=== PATIENT | male | born 1980 | race Caucasian/White ===

== ENCOUNTER → 2023-11-23 08:59 | Outpatient (REF) | payer OTHER, SELFPAY | LOC: HWRAD 08:59 | PROVIDERS: ATTENDING PHYSICIAN Family Medicine | DX: M54.31 Sciatica, right side (principal) | CPT/HCPCS: 72110 ==

== ENCOUNTER → 2024-01-16 17:08 | Outpatient (REF) | payer OTHER, SELFPAY | LOC: MRI 17:08 | PROVIDERS: ATTENDING PHYSICIAN Physician Assistant; FAMILY PHYSICIAN Family Medicine | DX: M54.16 Radiculopathy, lumbar region (principal) | CPT/HCPCS: 72148 ==

== ENCOUNTER → 2024-02-07 07:24 | Outpatient (REF) | payer OTHER, SELFPAY | LOC: MRI 07:24 | PROVIDERS: ATTENDING PHYSICIAN Surgery; FAMILY PHYSICIAN Family Medicine | DX: N28.89 Other specified disorders of kidney and ureter (principal) | CPT/HCPCS: 74183; A9575 ==

== ENCOUNTER 2024-04-08 06:09 | Day surgery (SDC) | payer OTHER, SELFPAY ==
[2024-03-27 11:13] VITALS: BMI 52.6
[2024-03-27 11:43] LABS: Hematocrit 48.9 % (39.0-52.0); Hemoglobin 16.2 g/dL (13.0-18.0); Mean Corp Hgb Conc. 33.1 g/dL (33.0-37.0); Mean Corpuscular Hgb 30.9 pg (27.0-31.0); Mean Corpuscular Volume 93.1 fL (80.0-94.0); Mean Platelet Volume 9.6 fL (7.4-10.4); Platelet Count 251 10^3/uL (130-400); Red Blood Cell Count 5.25 10^6/uL (4.70-6.10); Red Cell Dist. Width 13.3 % (11.5-14.5)
[2024-03-27 15:23] LABS: Blood Urea Nitrogen 9 mg/dl (9-20); Calcium 8.8 mg/dl (8.4-10.2); Carbon Dioxide 30 mmol/L (22-30); Chloride 103 mmol/L (98-107); Estimated Creatinine Clearance > 125 ml/min; Glucose 131 mg/dl (70-99); Potassium 4.4 mmol/L (3.5-5.1); Sodium 145 mmol/L (135-145); eGFR > 60.00
[2024-04-08] VITALS (14 sets, daily range): BP systolic 98–168; BP diastolic 59–96; BMI 52.6
[2024-04-08 06:44] LABS: Glucose - Point of Care 143 mg/dl (70-99)
[2024-04-08 12:22] LABS: Glucose - Point of Care 195 mg/dl (70-99)
--- NOTE | 2024-04-08 12:27 | W.IMMPOSTOP ---
Surgical Immed Post Op Note
-
Primary Surgeon: Reidfer
Assisting Surgeon: none
Pre-op Diagnosis: R renal mass
Post-op Diagnosis: same
Procedure Performed: Robotic R partial nephrectomy
Anesthesia Type: general
Specimen / Cultures: R renal mass
Estimated Blood Loss: 250cc
Complications: none
Operative Findings: -
[2024-04-08] MEDS: DILAUDID 0.5 MG IV ×2 (12:33→13:04)
[2024-04-08] MEDS: TORADOL 15 MG IV ×2 (13:05→18:11)
[2024-04-08 13:12] LABS: Hematocrit 43.7 % (39.0-52.0); Hemoglobin 14.9 g/dL (13.0-18.0); Mean Corp Hgb Conc. 34.1 g/dL (33.0-37.0); Mean Corpuscular Hgb 30.7 pg (27.0-31.0); Mean Corpuscular Volume 89.9 fL (80.0-94.0); Mean Platelet Volume 9.6 fL (7.4-10.4); Platelet Count 266 10^3/uL (130-400); Red Blood Cell Count 4.86 10^6/uL (4.70-6.10); Red Cell Dist. Width 13.2 % (11.5-14.5); White Blood Cell Count 13.8 10^3/uL (4.8-10.8)
[2024-04-08] MEDS: NSS 1000 IV ×2 (13:20→20:59)
[2024-04-08 13:26] LABS: Blood Urea Nitrogen 9 mg/dl (9-20); Calcium 8.2 mg/dl (8.4-10.2); Carbon Dioxide 23 mmol/L (22-30); Chloride 101 mmol/L (98-107); Estimated Creatinine Clearance > 125 ml/min; Glucose 215 mg/dl (70-99); Sodium 137 mmol/L (135-145); eGFR > 60.00
--- NOTE | 2024-04-08 14:00 | PTCARENOTE ---
received pt from PACU in bed. he is AAOx3 and mentating well. c/o shoulder pain and secondarily, minor abdominal pain. oriented to room, routine. pham catheter intact with nessa drainage. incisions well approximated with surgical adhesive. will
monitor
--- NOTE | 2024-04-08 15:26 | SUR.PHASEI ---
pacu addendum:
patient in pacu - denies abdominal pain. C/o severe right shoulder pain - at 1330 noted 20 -30 point difference btwn right radial alana and left wrist cuff. cuff pressure on right matches left cuff pressure. good pulses in wrist - Dr Mahmood
called with shoulder pain - believed to be from positionng in surgery. Glucose as noted - Dr Mahmood advised, Encouraged patient to help to change his postion and sit up for eased in respirations. Dilaudid 0.5mg given IV x2 and toradol started.
Labs sent .. patient does sleep intermittently - though states pain is horrrible right shoulder - tells Dr Mahmood 'not too bad'. Alana d/c'd and pressure held right wrist. pressure dressing on . Iv capped with extension left hand. Warm blanket
right shoulder which appears to help pain. Dr Morgan visits at 1345 - updated on labs and shoulder pain. believed to be postional. Patient now states pain is tolerable. Report to south and transported by bed. family updated
[2024-04-08] MEDS: THIAMINE INJECTION 200 MG IV (21:00)
[2024-04-08] MEDS: SENOKOT 17.2 MG PO (21:01)
[2024-04-09] MEDS: TORADOL 15 MG IV ×3 (00:32→15:08)
[2024-04-09 01:33] LABS: ALT (SGPT) 184 U/L (0-50); AST (SGOT) 558 U/L (17-59); Albumin 4.4 g/dl (3.5-5.0); Alkaline Phosphatase 72 U/L (38-126); B-Hydroxybutyrate 0.08 mmol/L (0.02-0.27); Blood Urea Nitrogen 10 mg/dl (9-20); Calcium 8.5 mg/dl (8.4-10.2); Carbon Dioxide 26 mmol/L (22-30); Chloride 100 mmol/L (98-107); Estimated Creatinine Clearance > 125 ml/min; GGTP 74 U/L (15-73); Glucose 155 mg/dl (70-99); Magnesium 2.1 mg/dl (1.6-2.3); Sodium 137 mmol/L (135-145); Total Bilirubin 1.2 mg/dl (0.2-1.3); Total Protein 7.1 g/dl (6.3-8.2); eGFR > 60.00
[2024-04-09 02:14] LABS: Amphetamines Negative (Negative); Barbiturates Negative (Negative); Benzodiazepines Negative (Negative); Buprenorphine Negative (Negative); Cocaine Negative (Negative); Marijuana Negative (Negative); Methadone Negative (Negative); Methamphetamines Positive (Negative); Opiates Positive (Negative); Phencyclidine Negative (Negative); Tricyclic Antidepressants Negative (Negative)
[2024-04-09 02:32] LABS: Fentanyl, Urine Positive (Negative)
[2024-04-09 05:29] VITALS: BMI 52.6
[2024-04-09 05:37] LABS: Hematocrit 42.3 % (39.0-52.0); Hemoglobin 13.9 g/dL (13.0-18.0); Mean Corp Hgb Conc. 32.9 g/dL (33.0-37.0); Mean Corpuscular Hgb 30.4 pg (27.0-31.0); Mean Corpuscular Volume 92.6 fL (80.0-94.0); Mean Platelet Volume 9.8 fL (7.4-10.4); Platelet Count 223 10^3/uL (130-400); Red Blood Cell Count 4.57 10^6/uL (4.70-6.10); Red Cell Dist. Width 13.4 % (11.5-14.5)
[2024-04-09 06:04] LABS: ALT (SGPT) 188 U/L (0-50); AST (SGOT) 498 U/L (17-59); Albumin 3.7 g/dl (3.5-5.0); Alkaline Phosphatase 64 U/L (38-126); Blood Urea Nitrogen 10 mg/dl (9-20); Calcium 8.1 mg/dl (8.4-10.2); Carbon Dioxide 25 mmol/L (22-30); Chloride 102 mmol/L (98-107); Estimated Creatinine Clearance > 125 ml/min; Glucose 140 mg/dl (70-99); Magnesium 2.1 mg/dl (1.6-2.3); Phosphorus 3.7 mg/dl (2.5-4.5); Potassium 3.9 mmol/L (3.5-5.1); Sodium 140 mmol/L (135-145); Total Bilirubin 1.2 mg/dl (0.2-1.3); Total Protein 6.4 g/dl (6.3-8.2); eGFR > 60.00
[2024-04-09 07:52] VITALS: BP 177/97
[2024-04-09] MEDS: NORVASC 10 MG PO (08:47)
[2024-04-09] MEDS: SENOKOT 17.2 MG PO (08:48)
[2024-04-09] MEDS: THIAMINE INJECTION 200 MG IV (08:48)
[2024-04-09] MEDS: BYSTOLIC 5 MG PO (08:49)
[2024-04-09] MEDS: FOLVITE 1 MG PO (08:49)
--- NOTE | 2024-04-09 11:08 | CM ---
Met with pt at bedside
Pt reports he lives in a multi-story home with his mother and 2 sisters; no steps to enter, bed/bath on
Independent, employed FT, drives
DME - none
SNF/HH - denies past hx
Has ride home at discharge
PCP - Jeremy Camara
Pharm - [facility]
CM consult for substance abuse/alcohol with drawl risk
Discussed with pt -offered services - declined
Plan - anticipate home no needs
--- NOTE | 2024-04-09 13:48 | W.PN.URO.CBU ---
Today's Communication / Plan
-
Discharge
Assessment / Plan
-
43M POD 1 s/p robotic R partial nephrectomy for suspicious renal mass, consistent with renal cell carcinoma
- Menon removed this AM
- Regular diet
- Ambulate
- IS
- PO pain controlled with NSAID only
- Elevated liver enzymes due to liver manipulation during surgery. LFTs were normal 02/2024 preop. Advised reducing alcohol consumption for next 2 weeks
- CM to discuss substance use counseling
Discharge likely today
Diagnosis
-
Date of Service: April 09, 2024
-
Patient Diagnosis:
R renal mass
Post Op Day: 1 s/p R partial nephrectomy
Subjective
-
pain controlled overnight
tolerated clears
ambulating in hallway
No n/v
Objective
-
Vital Signs
Temp Pulse Resp BP Pulse Ox
98.1 F 76 17 177/97 94
04/09/24 07:52 04/09/24 07:52 04/09/24 07:52 04/09/24 07:52 04/09/24 07:52
Intake and Output
04/08/24 04/09/24 04/10/24
06:59 06:59 06:59
Intake Total 3435 / 3435
Output Total 5 / 3225 350 / 350
Balance 210 / 210 -350 / -350
Intake:
Oral fluids 1710 / 1710
IV fluids (Total) 1725 / 1725
normosol 125 / 125
nss 100 / 100
Output:
Urine, Menon 3224 / 5
Urine, Voided 350 / 350
Other:
Number of approximated MODERATE 1
amounts of urine
Laboratory Results
04/09/24 04:59
04/09/24 04:59
Physical Exam
-
General - well developed, well nourished, no acute distress
Chest - clear
Abdomen - soft, non-tender
Genitalia - normal
Skin - warm & dry with no rash
Neuro - AOx3, no motor deficits
Extremities - no clubbing, no cyanosis, no edema
Incision - clean, dry, skin glue intact
Dressing - clean, dry, intact
[2024-04-09 15:01] VITALS: BP 178/102
== END 2024-04-09 16:20 | disposition home or self-care (01) ==
LOC: SDS 06:09
PROVIDERS: ATTENDING PHYSICIAN Urology; FAMILY PHYSICIAN Family Medicine
DX: C64.1 Malignant neoplasm of right kidney, except renal pelvis (principal)
CPT/HCPCS: 50543; 88307; 36415; 80048; 80053; 80306; 80307; 82010; 82962; 82977; 83735; 84100; 85027; 86850; 86900; 86901; 86920; 93005

== ENCOUNTER 2024-04-13 01:45 | Emergency (ER) | payer OTHER, SELFPAY ==
[2024-04-13 01:48] VITALS: BP 140/71
--- NOTE | 2024-04-13 02:00 | ED.GENMED ---
History of Present Illness
General
Chief Complaint: Post Operative Problem(s)
Source: patient and records
Exam Limitations: none
Time Seen by Provider: 04/13/24 01:56
Nursing documentation reviewed up to this point in time: agreed with
History of Present Illness
History of Present Illness:
43-year-old male with past medical history of hypertension, diabetes, renal cell carcinoma status post right nephrectomy who presents to the ER for evaluation of left back pain. Patient had surgery 04/08/[address] Singh to remove right renal
cell carcinoma. He says he was discharged home roughly 4 PM 04/09/2024 and was feeling generally well Monday evening. He says that the next day he began to notice pain in the left low back particularly with certain movements or when he tried to
lay down in bed. The symptoms have been constant and worsening since then which prompted trip to the ER. He has been taking prescription narcotics for pain control including dose of Dilaudid which was did not help; subsequently prescribed
oxycodone which he took and again this did not help. He has not had any fevers. Denies any dysuria, hematuria, change in urinary frequency. Has had some constipation has not had a bowel movement since Monday. No weakness or numbness in
extremities. He denies any other complaints.
Review of Systems
Review of Systems
All Other Systems: ROS reviewed and negative except as documented in HPI and ROS
Constitutional: Denies fever or chills
EENT: Denies sore throat or runny nose
Respiratory: Denies trouble breathing
Cardiac: Denies chest pain or palpitations
ABD/GI: Reports constipated; Denies abdominal pain, nausea or vomiting
: Denies dysuria, frequency or bleeding
Musculoskeletal: Reports back pain; Denies neck pain
Neurological: Denies headache
Phy Exam
Physical Exam
Physical Exam:
General: Awake, alert, oriented x3; no acute distress
Head: Normocephalic, atraumatic
Eyes: Conjunctiva normal
Throat: Airway intact, handling secretions
Neck: Trachea midline
Lungs: Breathing comfortably no distress, no accessory muscle use, no cyanosis
Heart: Regular rate and rhythm
Abd: Soft, non distended, multiple clean appearing surgical incisions which are appropriately tender to the touch
Back: No tenderness in the midline thoracic or lumbar spine, mild tenderness in the paraspinal region left upper lumbar; no CVA tenderness
Neuro: Cranial nerves grossly intact, speech fluid, motor and sensory intact in lower extremities, ambulatory
Extremities: No edema in extremities, warm and well-perfused
Scores
Heart Failure Risk
Heart Failure Risk Score: Not Applicable
Heart Score for Chest Pain Patients
STEMI patient?: Not applicable
Withdrawal Assessment of Alcohol
Withdrawal Assessment Completed?: Not applicable
Course
Orders/Labs/Results
Orders:
Orders
04/13/24 01:57
CT Abd/pelvis W Iv Cont Urgent
Comment:
Reason For Exam: left flank pain s/p RIGHT nephrectomy
04/13/24 01:58
0.9% Sodium Chloride 1000 ml [Nss] 1,000 ml IV BOLUS
HYDROmorphone [Dilaudid] 0.5 mg IV NOW STA
04/13/24 02:34
Type+Screen Urgent
Complete Blood Count/With Diff Urgent
Comprehensive Metabolic Panel Urgent
Urinalysis Reflex To Culture Urgent
Date Specimen was Collected: 04/13/24
Time Specimen was Collected: 02:13
Urine Microscopic Reflex Cult Urgent
Abnormal Lab Results
04/13/24
02:34
RBC 4.46 L 10^6/uL
(4.70-6.10)
MCH 31.2 H pg
(27.0-31.0)
Absolute Neuts (auto) 7.2 H 10^3/uL
(1.4-6.5)
Absolute Monos (auto) 0.8 H 10^3/uL
(0.1-0.6)
Lymphocytes % 19.8 L %
(20.5-51.1)
Glucose 147 H mg/dl
(70-99)
AST 91 H U/L
(17-59)
ALT 88 H U/L
(0-50)
Ur Occult Blood Reflex 2+ A
(Negative)
04/13/24 02:34
04/13/24 02:34
Vital Signs
Initial and Last Documented VS:
Initial Vital Signs
Temp Pulse Resp BP Pulse Ox
36.8 C 76 20 140/71 98
04/13/24 01:48 04/13/24 01:48 04/13/24 01:48 04/13/24 01:48 04/13/24 01:48
Last Documented Vital Signs
Temp Pulse Resp BP Pulse Ox
37.3 C 80 20 150/79 95
04/13/24 03:02 04/13/24 03:02 04/13/24 03:02 04/13/24 03:02 04/13/24 03:02
MDM/Problems Addressed
Differential Diagnosis Includes:
Retroperitoneal bleeding, UTI/pyelonephritis, nephrolithiasis, constipation, musculoskeletal pain
MDM/Problems Addressed:
43-year-old male who was 5 days status post right nephrectomy presents to the emergency room for evaluation of left low back pain. Vitals and exam as above. Plan to place an IV check labs including CBC and a CMP, urinalysis. Check CT abdomen
pelvis. Treat pain. Monitor closely reassess after the above.
Labs reviewed: CBC and CMP no clinically significant abnormalities�LFTs have been abnormal postoperatively but are improving. Urinalysis no signs of infection. CT abdomen pelvis no acute pathology�no hemorrhage, no clear infection (likely
postoperative changes right perinephric region). Clinical reassessment patient's pain was well-controlled with medications here. Clinical suspicion at this point is that this is musculoskeletal pain as it is quite consistently movement and
position related. We spoke about pain control strategies�avoiding NSAIDs due to recent renal surgery but will increase dose of oxycodone, advised regarding topical treatments, gentle stretching, heat, massage. He feels comfortable with this plan.
Spoke about return precautions all questions answered.
*Radiology
Radiology exam reviewed: radiology read reviewed
*Pulse Oximetry
Patient hypoxic: no
*Critical Care Note
Total Time (30-74mins, 75-104mins- exclusive of procedures): Not Applicable
Data Reviewed
Review of Other/Old Records Reveals: Labs, Records and Discharge Summary
Source: patient and records
ED Attending Note
-
Portions of this chart may have been created with voice recognition software.� Occasional wrong word or��sound alike� substitutions may have occurred due to the inherent limitations of voice recognition software.
Discharge Plan
Departure
Patient Disposition: Home (Routine Discharge)
Date of Disposition: 04/13/24
Time of Disposition: 04:30
Patient with high blood pressure during this ER visit?: Yes
Discharge Problem:
Low back pain
Prescriptions:
New
oxycodone-acetaminophen [Endocet] 5-325 mg tablet
2 tab PO Q6H PRN (Reason: Pain) 5 Days Qty: 20 0RF
lidocaine [Lidocan III] 5 % adhesive patch,medicated
1 patch topical DAILY Qty: 30 0RF
No Action
amlodipine 10 mg Tablet
10 mg PO DAILY
nebivolol 5 mg Tablet
5 mg PO DAILY
Advil
600 mg PO Q6H
Dilaudid
1 tab PO Q4H PRN (Reason: abd pain)
Ocycodone/Percocet
1 tab PO Q6H PRN (Reason: pain)
Referrals:
Jeremy Camara DO [Family Provider] - Follow up in 5-7 days
Edmond Morgan MD [Active] - Keep scheduled appt
Activity Restrictions/Additional Instructions:
Thank you for visiting the Emergency Department at [facility].
1. Please schedule a follow up appointment as directed. Call first thing tomorrow morning to make an appointment.
2. If indicated, please take your medications as instructed and indicated on discharge paperwork.
3. If any of your symptoms do not improve, or persist, or become more severe within 6-12 hours, please return to the emergency department for further care.
4. Please return to the emergency department if you develop a headache, neck pain/stiffness, fever greater than 100.4F, chest pain, shortness of breath, persistent nausea, vomiting, slurred speech, difficulty walking, numbness/tingling, weakness,
signs of infection or any other symptoms that are worrisome to you.
Please call [phone] if you have any questions.
Interventions
Interventions:
*Risk Screen - Suicide Last Done: 04/13/24 01:48
*General Assessment Last Done: 04/13/24 01:48
*Neglect/Abuse Screening Last Done: 04/13/24 01:48
ED- Fall Risk Assessment Last Done: 04/13/24 03:02
*ED COVID-19 Vaccine History Last Done: 04/13/24 01:48
ED-Skin Assessment Last Done: 04/13/24 03:02
Discharge Date and Time
Print Language: FRISIAN
[2024-04-13 02:39] VITALS: BP 145/81
[2024-04-13] MEDS: DILAUDID 0.5 MG IV (02:40)
[2024-04-13] MEDS: NSS 1000 IV (02:40)
[2024-04-13 02:43] VITALS: BMI 56.4
[2024-04-13 02:48] LABS: % Basophils 0.4 % (0-2); % Eosinophils 1.9 % (0-6); % Immature Granulocytes 0.4 % (0-0.5); % Lymphocytes 19.8 % (20.5-51.1); % Monocytes 8.1 % (1.7-9.3); % Neutrophils 69.4 % (42.2-75.2); Absolute Eosinophils 0.2 10^3/uL (0-0.7); Absolute Lymphocytes 2.1 10^3/uL (1.2-3.4); Absolute Monocytes 0.8 10^3/uL (0.1-0.6); Absolute Neutrophils 7.2 10^3/uL (1.4-6.5); Hematocrit 40.1 % (39.0-52.0); Hemoglobin 13.9 g/dL (13.0-18.0); Mean Corp Hgb Conc. 34.7 g/dL (33.0-37.0); Mean Corpuscular Hgb 31.2 pg (27.0-31.0); Mean Corpuscular Volume 89.9 fL (80.0-94.0); Mean Platelet Volume 9.2 fL (7.4-10.4); Nucleated Red Blood Cells % 0 % (-); Platelet Count 265 10^3/uL (130-400); Red Blood Cell Count 4.46 10^6/uL (4.70-6.10); White Blood Cell Count 10.3 10^3/uL (4.8-10.8)
[2024-04-13 02:53] LABS: Urine Albumin Trace (Neg - Trace); Urine Bilirubin Negative (Negative); Urine Character Clear (Clear); Urine Color Yellow; Urine Glucose Negative (Negative); Urine Ketone Negative (Negative); Urine Leukocyte Negative (Negative); Urine Nitrite Negative (Negative); Urine Occult Blood 2+ (Negative); Urine Urobilinogen Negative (Neg - 1+)
[2024-04-13 03:02] VITALS: BP 150/79
[2024-04-13 03:12] LABS: ALT (SGPT) 88 U/L (0-50); AST (SGOT) 91 U/L (17-59); Albumin 3.7 g/dl (3.5-5.0); Alkaline Phosphatase 66 U/L (38-126); Blood Urea Nitrogen 11 mg/dl (9-20); Calcium 8.8 mg/dl (8.4-10.2); Carbon Dioxide 30 mmol/L (22-30); Chloride 102 mmol/L (98-107); Estimated Creatinine Clearance > 125 ml/min; Glucose 147 mg/dl (70-99); Potassium 3.9 mmol/L (3.5-5.1); Sodium 140 mmol/L (135-145); Total Bilirubin 0.9 mg/dl (0.2-1.3); Total Protein 6.3 g/dl (6.3-8.2); eGFR > 60.00
[2024-04-13 04:49] VITALS: BP 143/78
[2024-04-13 05:46] LABS: Urine Amorphous Seen; Urine Squamous Cell >30 /LPF (Few)
[2024-04-13 05:47] LABS: Urine Mucus Few
[2024-04-13 05:48] LABS: Urine Bacteria Moderate (Negative); Urine Red Blood Cell 30-40 /HPF (0-2); Urine White Cell 0-2 /HPF (0-5)
== END 2024-04-13 04:52 | disposition home or self-care (01) ==
LOC: EMR 01:45
PROVIDERS: EMERGENCY PHYSICIAN Emergency Medicine; FAMILY PHYSICIAN Family Medicine
DX: M54.50 Low back pain, unspecified (principal); R10.9 Unspecified abdominal pain; K59.00 Constipation, unspecified; C64.9 Malignant neoplasm of unspecified kidney, except renal pelvis; I10 Essential (primary) hypertension; E11.9 Type 2 diabetes mellitus without complications; F32.A Depression, unspecified; Z98.890 Other specified postprocedural states; Z90.5 Acquired absence of kidney
CPT/HCPCS: 99284; 96361 ×2; 96374; 74177; 80053; 81003; 81015; 85025; 86850; 86900; 86901; 87086; Q9967

== ENCOUNTER → 2025-04-22 06:50 | Outpatient (REF) | payer OTHER, SELFPAY | LOC: RAD 06:50 | PROVIDERS: ATTENDING PHYSICIAN Urology; FAMILY PHYSICIAN Family Medicine | DX: N28.89 Other specified disorders of kidney and ureter (principal); C64.1 Malignant neoplasm of right kidney, except renal pelvis | CPT/HCPCS: 71260; 74170; Q9967 ==